=== PATIENT | female | born 1995 | race Caucasian/White ===

== ENCOUNTER 2025-02-07 12:40 | Outpatient (CLI) | payer OTHER, SELFPAY ==
--- NOTE | 2025-02-07 13:00 | CRLHL7_ITS ---
For Patients: As a result of the Century Cures Act, medical imaging exams and procedure reports are released immediately into your electronic medical record. You may view this report before your referring provider. If you have questions, please contact your health care provider. INDICATION: Dysmenorrhea COMPARISON: None. TECHNIQUE: 2D rios-scale and color Doppler images were acquired of the pelvis using a transabdominal and transvaginal approach. Transvaginal imaging performed to better visualize the endometrial stripe and ovaries. FINDINGS: Sonographic images demonstrate a normal size and smooth outer contour of the uterus. Uterus measures 7.8 cm in length by 3.3 cm in AP diameter by 3.8 cm in transverse dimension. The myometrium has a normal uniform echotexture. The endometrial lining appears normal and measures 5.6 mm in composite thickness. The right ovary measures 3.5 x 1.4 x 2.2 cm in size and the left ovary measures 4.6 x 2.0 x 2.5 cm. The ovaries demonstrate normal arterial and venous blood flow on color Doppler analysis. There are no suspicious fluid collections within the cul-de-sac. IMPRESSION: Normal pelvic ultrasound. Dictated by Marvel Jordan MD @ 02/07/2025 4:07:40 PM (Electronically Signed)
== END 2025-02-07 12:41 | disposition home or self-care (01) ==
LOC: US 12:41
PROVIDERS: Visit Provider Nurse Practitioner Family
DX: N94.6 Dysmenorrhea, unspecified (principal)
CPT/HCPCS: 76830; 76856; 93976